=== PATIENT | male | born 1990 | race Caucasian/White ===

== ENCOUNTER 2019-01-06 19:40 | Emergency (ER) | payer BC, SELFPAY ==
[2019-01-06 19:44] VITALS: BP 126/83; PULSE 100; RESP 16; TEMP 36.6; O2SAT 95
--- NOTE | 2019-01-06 20:16 | ED.GENADUL_ITS ---
Discharge Plan Disposition Patient Disposition: HOME Condition: Stable Discharge Details Chief Complaint: RashLesion Clinical Impression: Rash Primary Care Provider: Yash Knox ED Provider: Sheba Marley Home Meds and New Rx's Prescriptions: New permethrin 5 % cream 1 applic TP Q14D Qty: 60 RF: 0 Continued fluticasone propion-salmeterol [Advair Diskus] 1 PUFF blister with device 0 ea Inhalation DAILY RF: 0 mometasone [Nasonex] 17 GM spray,non-aerosol 1 puff NS DAILY RF: 0 levalbuterol tartrate [Xopenex HFA] 200 PUFF HFA aerosol inhaler 2 puff Inhalation Q4H PRN PRNRF: 0 Discharge Instructions Instructions: Acute Rash (ED) Additional Instructions: Use the permethrin prescription as directed. Apply topical hydrocortisone to the affected areas twice daily. Keep the areas clean and dry and be sure to wear cottom clothing. Take the benadryl as needed and directed for itching. Follow-up with your primary care doctor in the next 2 days for reevaluation. Return to the emergency department with any worsening or newconcerning symptoms. Discharge Data Discharge Date/Time-TO BE ENTERED AT DEPARTURE: 01/06/19 20:35 Discharge Physician: Sheba Marley Medical Decision Making 28-year-old male with generalized itching and occasional scattered papules noted to extremities, back and groin over the last month. He denies any new exposures, fever, pain, URI symptoms. There were very minimal papules in groin noted. There was no burrowing, abscesses or vesicles noted. He appears nontoxic and airway intact. Discussed with patient that differential diagnosis could include contact dermatitis, scabies, other unknown allergy. As he works at the [employer], this could make scabies more likely, however there are no other residents at home with same symptoms. He is advised to wash all of his clothing and bedding and will give a prescription for permethrin. He is advised to take [id number] antihistamines as needed for itching and to try topical hydrocortisone and to avoid shaving in the groin region symptoms present. It was discussed that he could try thinking of possible avoidance triggers, and try the antihistamines and topical steroids first before starting the permethrin. It is recommended he follow up with his primary care doctor for reevaluation and for referral to allergy if symptoms do not improve or worsen. He was advised to return here with any concerns. Medical Records Medical records reviewed: Yes I reviewed the patient's medical records. HPI General Mode of arrival: ambulatory . Date/Time Provider Initiated Documentation: 01/06/19 19:54 . Limitations to Documentation: no limitations . Information obtained by: patient . HPI Narrative: Pt is a 28yr old M who presents to the ED w/ a c/o itching and intermittent scattered bumps to his groin and back. He states he works at the [employer] and is concerned about being exposed to scabies. He states other people living at home do not have the same symptoms. He states the itching is worse at night. He states he does not always develop a rash in the area where he has itching and states he generally has itching all over. He states he has seen occasional red bumps on his arms and in his groin. He denies any fever, sore throat, cough shortness of breath, abdominal pain, new exposures including new medications, foods, lotions, detergents. He denies any significant pain or burning with the rash. Related Data Home Medications Medication Instructions Recorded Confirmed fluticasone propion-salmeterol 0 ea INHALATION DAILY 01/11/15 01/06/19 [Advair Diskus] levalbuterol tartrate [Xopenex HFA] 2 puff INHALATION Q4H PRN PRN 01/11/15 01/06/19 mometasone [Nasonex] 1 puff NS DAILY 01/11/15 01/06/19 permethrin 1 applic TP Q14D #60 gm 01/06/19 Previous Rx's Medication Instructions Recorded permethrin 1 applic TP Q14D #60 gm 01/06/19 Allergies Allergy/AdvReac Type Severity Reaction Status Date / Time dander Allergy Uncoded 01/11/15 16:14 dust Allergy Uncoded 01/11/15 16:14 General Stated Complaint: RashLesion MARCELLUS: 4 Review of Systems Review of Systems ROS Unobtainable: All systems reviewed & are unremarkable except as noted in HPI and below Constitutional Constitutional: Reports as per HPI, Denies chills and Denies fever(s) Eyes Eyes: Denies blurry vision ENT Ears, Nose, Mouth, and Throat: Denies dizziness, Denies sore throat and Denies throat swelling Cardiovascular Cardiovascular: Denies chest pain and Denies dyspnea Respiratory Respiratory: Denies cough and Denies dyspnea Gastrointestinal Gastrointestinal: Denies abdominal pain, Denies diarrhea and Denies vomiting Genitourinary Genitourinary: Denies hematuria and Denies dysuria Musculoskeletal Musculoskeletal: Denies back pain, Denies numbness and Reports tingling Integumentary/Breasts Skin/Breast: Denies lesions and Reports rash Neurologic Neurologic: Denies dizziness, Denies focal weakness, Denies numbness and Reports tingling Allergic/Immunologic Allergic/Immunologic: Denies throat swelling [facility] Medical History Asthma (Chronic) Surgical History No significant past surgical history (Acute) Social History Smoking/Tobacco Use Status: Former Tobacco Use Drug use: Never Exam Const General: cooperative, healthy appearing and no acute distress HENMT Head: normal to inspection Mouth: oral mucosae normal Eyes General: appearance normal, both eyes and all related structures Neck Neck: normal visual inspection Resp Effort & Inspection: normal respiratory effort and able to speak in complete sentences Auscultation: clear to auscultation bilaterally Cardio Rate: regular rate Rhythm: regular rhythm Skin Other: Minimal small 1 to 2 mm nontender erythematous papules noted to bilateral groin, possibly 2-3 in number. No other rashes noted. No vesicles, abscesses. Neuro General: alert, awake and oriented x3 Motor: muscle tone normal throughout Extrem General: normal to inspection and full ROM Psych Appearance: grossly normal Affect: normal affect Course Vital Signs Vital signs: Vital Signs Temperature 97.9 F 01/06/19 19:44 Pulse 100 H 01/06/19 19:44 Respiratory Rate 16 01/06/19 19:44 Blood Pressure 126/83 01/06/19 19:44 Pulse Oximetry 95 01/06/19 19:44 Temperature 97.9 F 01/06/19 19:44 Temperature Source Temporal Artery Scan 01/06/19 19:44 Pulse 100 H 01/06/19 19:44 Respiratory Rate 16 01/06/19 19:44 Blood Pressure 126/83 01/06/19 19:44 Pulse Oximetry 95 01/06/19 19:44 Oxygen Delivery Method Room Air 01/06/19 19:44 Oxygen Flow Rate 0 01/06/19 19:44
[2019-01-06 20:36] VITALS: BP 126/83; PULSE 100; RESP 16; TEMP 36.6; O2SAT 95
== END 2019-01-06 20:35 | disposition home or self-care (01) ==
LOC: ER 20:36
PROVIDERS: Emergency Provider Physician Assistant; PCP Physician Assistant
DX: R21 Rash and other nonspecific skin eruption (principal)
CPT/HCPCS: 99283

== ENCOUNTER 2019-04-19 01:19 | Emergency (ER) | payer BC, SELFPAY ==
[2019-04-19 01:22] VITALS: BP 144/86; PULSE 70; RESP 16; TEMP 36.8; O2SAT 100
--- NOTE | 2019-04-19 01:28 | ED.GENADUL_ITS ---
Discharge Plan Disposition Patient Disposition: HOME Condition: Stable Discharge Details Chief Complaint: Orthopedic Clinical Impression: Pain of right calf Primary Care Provider: Yash Knox ED Provider: Adonay Cross Home Meds and New Rx's Prescriptions: Continued fluticasone propion-salmeterol [Advair Diskus] 1 PUFF blister with device 0 ea Inhalation DAILY RF: 0 mometasone [Nasonex] 17 GM spray,non-aerosol 1 puff NS DAILY RF: 0 levalbuterol tartrate [Xopenex HFA] 200 PUFF HFA aerosol inhaler 2 puff Inhalation Q4H PRN PRNRF: 0 permethrin 5 % cream 1 applic TP Q14D Qty: 60 RF: 0 Discharge Instructions Additional Instructions: take aspirin 81mg daily you should be contacted with an appointment for an ultrasound on Sunday if you develop high fevers or difficulty breathing or chest pain/pressure return to the emergency department Medical Decision Making 28 yo male comes in with nontraumatic 2 weeks of right calf pain. States he has been recently not very mobile due to recent back injury. Denies any fevers or rashes. He has pain in the mid calf with very mild swelling, full rom of the legs and no redness or erythema, normal pulses. Suspect calf strain but given location and decrease in mobility (though still walking) feel u/s would be useful unfortunately no u/s available until Sunday. Feel he is low risk enough to wait until Sunday. Will have him return for u/s on Sunday and return precautions go come back sooner given. Differential Diagnosis Differential Diagnosis: dvt, strain, spasm HPI General Mode of arrival: ambulatory . Date/Time Provider Initiated Documentation: 04/19/19 01:20 . Limitations to Documentation: no limitations . Information obtained by: patient . History of Present Illness 28 year old M presents to the emergency department with the chief complaint of right calf pain, described as moderate, Quality is described as aching, and is localized to the lower extremity. Patient reports no radiation. Patient started experiencing this week(s) (2) No relieving factors improve symptom(s), No exacerbating factors reported . Patient did receive the following treatments prior to arrival, none Related Data Home Medications Medication Instructions Recorded Confirmed fluticasone propion-salmeterol 0 ea INHALATION DAILY 01/11/15 01/06/19 [Advair Diskus] levalbuterol tartrate [Xopenex HFA] 2 puff INHALATION Q4H PRN PRN 01/11/15 01/06/19 mometasone [Nasonex] 1 puff NS DAILY 01/11/15 01/06/19 clindamycin HCl 300 mg PO TID 04/19/19 04/19/19 diazepam [Valium] 5 mg PO TID PRN 04/19/19 04/19/19 gabapentin 100 mg PO TID 04/19/19 04/19/19 Allergies Allergy/AdvReac Type Severity Reaction Status Date / Time dander Allergy Uncoded 01/11/15 16:14 dust Allergy Uncoded 01/11/15 16:14 General MARCELLUS: 4 Review of Systems All systems reviewed & are unremarkable except as noted in HPI and below Constitutional Constitutional: Denies chills, Denies fever(s) and Denies weakness Cardiovascular Cardiovascular: Denies chest pain and Denies dyspnea Respiratory Respiratory: Denies dyspnea Gastrointestinal Gastrointestinal: Denies abdominal pain, Denies nausea and Denies vomiting Musculoskeletal Musculoskeletal: Denies joint swelling Neurologic Neurologic: Denies weakness PFSH Social History Smoking/Tobacco Use Status: Former Tobacco Use Alcohol Intake: former Drug use: Never Substance use type: does not use Do you feel safe at home: Yes Do you feel safe in your relationship?: Yes Exam Const General: no acute distress Orientation: alert HENMT Head: normal to inspection Ears: external ears normal General nose exam: external nose normal Mouth: moist mucous membranes Eyes General: appearance normal, both eyes and all related structures Neck Neck: normal visual inspection Resp Effort & Inspection: normal respiratory effort and able to speak in complete sentences Cardio Rate: regular rate Skin General skin exam: no rashes or lesions noted Neuro General: alert and oriented x3 Extrem General: full ROM and normal capillary refill Psych Mental Status: mental status grossly normal
== END 2019-04-19 01:45 | disposition home or self-care (01) ==
LOC: ER 01:47
PROVIDERS: Emergency Provider Emergency Medicine; PCP Physician Assistant
DX: M79.661 Pain in right lower leg (principal)
CPT/HCPCS: 99282

== ENCOUNTER 2019-04-23 01:25 | Outpatient (CLI) | payer BC, SELFPAY ==
--- NOTE | 2019-04-23 12:21 | DI.US_ITS ---
EXAM: US LOWER EXTREMITY VENOUS RT US LOWER EXTREMITY VENOUS RT CLINICAL HISTORY: RT CALF PAIN. RT CALF PAIN TECHNIQUE: Lower extremity venous ultrasound performed using grayscale, color-flow, and spectral Dop pler analysis. COMPARISON: No exams were available for comparison FINDINGS: The common femoral, femoral and popliteal veins demonstrate normal compressibility, augmentation, and color Doppler. The posterior tibial veins are patent. The saphenous vein appears free of thrombus. No Barnes's cyst or hematoma is seen. No superficial venous thrombosis or venous varicosities are see n. IMPRESSION: No evidence of DVT.
== END 2019-04-23 01:45 ==
PROVIDERS: PCP Physician Assistant; Visit Provider Emergency Medicine
DX: M79.661 Pain in right lower leg (principal)
CPT/HCPCS: 93971

== ENCOUNTER 2019-04-23 12:49 | Emergency (ER) | payer BC, SELFPAY ==
[2019-04-23 13:05] VITALS: BP 141/80; PULSE 105; RESP 16; TEMP 36.6; O2SAT 99
[2019-04-23 13:54] LABS: Lactate 0.8 mmol/L (0.6-1.4)
[2019-04-23 13:56] LABS: Abs Immature Grans 0.02 k/cumm (0.0-0.09); Absolute Basophil Count 0.04 k/cumm (0.0-0.2); Absolute Eosinophil Count 0.26 k/cumm (0.0-0.7); Absolute Monocyte Count 0.43 k/cumm (0.11-0.7); Absolute Neutrophil Count 5.17 k/cumm (1.2-6.7); Basophils % 0.5; Eosinophils % 3.4; HCT 46.5 % (40.0-50.0); HGB 16.1 g/dL (13.5-17.5); Immature Grans % 0.3 %; Lymphocytes % 22.3; Mean Corp. HGB Concentration 34.6 g/dL (32.0-36.0); Mean Corpuscular Hemoglobin 30.1 pg (27.0-33.0); Mean Corpuscular Volume 86.9 fL (80-95); Mean Platelet Volume 10.9 fL (8.0-11.0); Monocytes % 5.6; Neutrophils % 67.9; Platelet Count 204 x1000/uL (130-400); RBC 5.35 m/cumm (4.50-6.00); RBC Distribution Width 12.1 % (11.8-14.1); White Blood Cell Count 7.62 k/cumm (4.4-10.8)
--- NOTE | 2019-04-23 14:05 | DI.RAD_ITS ---
EXAM: XR CHEST 2V PA LATERAL CLINICAL HISTORY: cough, fever reports shaking chills r/o pneumonia TECHNIQUE: 2D digital imaging was performed. COMPARISON: No exams were available for comparison FINDINGS: The cardiac and mediastinal contours have a normal appearance. The lungs are well inflated and clear . No infiltrate, effusion or pneumothorax is seen. No spine or rib fracture is identified. IMPRESSION: Negative chest x-ray.
[2019-04-23 14:31] LABS: ALT 34 U/L (16-63); AST 19 U/L (15-37); Albumin 4.5 g/dL (3.4-5.0); Alkaline Phosphatase 74 U/L (46-116); Anion Gap 11.6 mmol/L (3-11); BUN 13 mg/dL (7-18); Bilirubin, Total 0.6 mg/dL (0.2-1.0); CO2 24.4 mmol/L (21.0-32.0); CREATININE 0.99 mg/dL (0.70-1.30); Calcium 9.4 mg/dL (8.5-10.1); Chloride 103 mmol/L (98-107); Glucose 96 mg/dL (74-106); Sodium 139 mmol/L (136-145); Total Protein 7.4 g/dL (6.4-8.2)
[2019-04-23 14:40] LABS: ESR 3 mm/hr (0-15)
[2019-04-23 15:30] VITALS: TEMP 36.6
--- NOTE | 2019-04-23 19:09 | W.ED.GENAD ---
Discharge Plan Disposition Patient Disposition: HOME Condition: Good Discharge Details Chief Complaint: Recheck Clinical Impression: Chills Primary Care Provider: Yash Knox ED Provider: Ramya Echevarria Home Meds and New Rx's Prescriptions: No Action fluticasone propion-salmeterol [Advair Diskus] 1 PUFF blister with device 0 ea Inhalation DAILY RF: 0 mometasone [Nasonex] 17 GM spray,non-aerosol 1 puff NS DAILY RF: 0 levalbuterol tartrate [Xopenex HFA] 200 PUFF HFA aerosol inhaler 2 puff Inhalation Q4H PRN PRNRF: 0 clindamycin HCl 300 mg Capsule 300 mg PO TID RF: 0 gabapentin 100 mg Capsule 100 mg PO TID RF: 0 diazepam [Valium] 5 mg Tablet 5 mg PO TID PRNRF: 0 Discharge Instructions Additional Instructions: Drink plenty fluids. Rest activities as tolerated. ER will call if your MRSA screening test or blood cultures returned positive. These results are still pending. Your lab results are extremely reassuring. Follow-up with infectious disease as discussed. Return for any worsening, concerns or alarming symptoms sooner if needed. Discharge Data Discharge Date/Time-TO BE ENTERED AT DEPARTURE: 04/23/19 15:33 Medical Decision Making This is a 28-year-old patient ultimately presenting to the emergency room for ultrasound follow-up as he was evaluated yesterday for right calf pain and ultrasound was unavailable at this time. Patient had ultrasound today which I have received a verbal report from radiology which is negative for obvious DVT. Patient however does report persistent concerns of night sweats and shaking chills. 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 He has been on 3 courses of clindamycin. Patient is concerned with the possibility of persistent MRSA infection. Patient is concerned with the possibility of blood infection. Patient denies any focal rash at this time. No wounds. Denies headaches or dizziness. Patient denies any sore throat. He does report a cough which has been present for approximately 1 month. Denies any associated difficulty beating shortness of breath or wheezing. Patient denies any chest pain. Patient is seeking lab evaluation to rule out any obvious blood infection. Patient does report that he recently completed a course of clindamycin 2 days ago and does report that since discontinuing his clindamycin he does feel significantly improved. He questions if clindamycin is related to his symptoms. Labs obtained at patient's request. Chest x-ray ordered as he does report cough for the last month and shaking chills and night sweats to rule out any obvious pneumonia. MRSA testing performed Patient's labs are entirely reassuring. No leukocytosis or shift associated. CMP normal, sed rate normal, lactate normal. Patient does have blood cultures and MRSA pending. Patient has requested that his lab results are sent to infectious disease whom he has a an upcoming appointment with. Patient feels comfortable with discharge home at this time. The patient was stable and requested discharge. Prior to discharge, my usual and customary return precautions were reviewed with the patient - this included follow-up instructions and reasons to return to the Emergency Department if conditions worsens, does not improve as expected, or other new concerns arise. HPI General Date/Time Provider Initiated Documentation: 04/23/19 13:02. HPI Narrative: This is a 28-year-old patient presenting to the emergency room today to follow-up his ultrasound findings. Patient was seen in the ER yesterday for complaints of right calf pain. Patient ultimately was concerned with the possibility of an infection as he has had multiple infections over the last year. Patient reports MRSA infections. Patient was concerned as last night he scratched the area began to burn. Concerned the possibility of development of new infection. Ultrasound was unavailable last evening ER doctor ordered ultrasound for this morning. Patient does report shaking chills at home and night sweats. Denies any nasal congestion, sore throat or body ache. He is ultimately concerned with the possibility of a blood infection. Patient does have a follow-up with infectious disease doctor in [facility] upcoming. Patient denies any measured fever. Patient denies any obvious rashes at this time. Patient denies any abdominal pain, nausea, vomiting. He does report a cough which has been present for approximately a month. Patient denies obvious headache or dizziness. Patient is requesting lab work at this time to rule out any obvious infection. Patient denies any chest pain no difficulty breathing shortness of breath or wheezing. Patient does report 3 courses of clindamycin in the last year. Patient does report he does get somewhat Rash when taking clindamycin and is concerned with the possibility of adverse reaction to clindamycin. Patient has been off clindamycin for the last 2 days. Does report some improvement in his symptoms in the last 2 days Related Data Home Medications Medication Instructions Recorded Confirmed fluticasone propion-salmeterol 0 ea INHALATION DAILY 01/11/15 04/23/19 [Advair Diskus] levalbuterol tartrate [Xopenex HFA] 2 puff INHALATION Q4H PRN PRN 01/11/15 04/23/19 mometasone [Nasonex] 1 puff NS DAILY 01/11/15 04/23/19 clindamycin HCl 300 mg PO TID 04/19/19 04/23/19 diazepam [Valium] 5 mg PO TID PRN 04/19/19 04/23/19 gabapentin 100 mg PO TID 04/19/19 04/23/19 Allergies Allergy/AdvReac Type Severity Reaction Status Date / Time dander Allergy Uncoded 04/23/19 13:09 dust Allergy Uncoded 04/23/19 13:09 General Stated Complaint: Recheck MARCELLUS: 4 Review of Systems All systems reviewed & are unremarkable except as noted in HPI and below Constitutional Constitutional: Reports chills, Denies fatigue, Denies fever(s), Denies headache(s), Reports malaise and Reports night sweats ENT Ears, Nose, Mouth, and Throat: Denies otalgia, Denies headache(s), Denies nasal discharge and Denies sore throat Cardiovascular Cardiovascular: Denies dyspnea and Denies dyspnea on exertion Respiratory Respiratory: Reports cough, Denies pain with cough, Denies dyspnea, Denies dyspnea on exertion and Denies wheezing Gastrointestinal Gastrointestinal: Denies abdominal pain, Denies diarrhea, Denies nausea and Denies vomiting Genitourinary Genitourinary: Denies dysuria and Denies flank pain Musculoskeletal Musculoskeletal: Denies myalgias Integumentary/Breasts Skin/Breast: Denies erythema, Denies rash and Denies wounds Neurologic Neurologic: Denies headache(s) Endocrine Endocrine: Denies fatigue Allergic/Immunologic Allergic/Immunologic: Denies wheezing [facility] Medical History Asthma (Chronic) Social History Smoking/Tobacco Use Status: Former Tobacco Use Alcohol Intake: former Drug use: Never Substance use type: does not use Do you feel safe at home: Yes Do you feel safe in your relationship?: Yes Exam Narrative Exam Narrative: CONST: Healthy appearing patient, in no acute distress. Well hydrated. Alert and oriented. HENMT: Head nomocephalic, normal to inspection. Atraumatic. Hearing grossly normal. TMs appear normal bilaterally. No pharyngeal erythema. EYES: General normal appearance. Alignment normal. Eyelids normal. Conjunctiva normal. NECK: Normal visual inspection. FROM. Trachea midline. No Midline tenderness. No cervical lymphadenopathy present CHEST: Normal insepection of the chest. RESP: Normal respiratory effort. Speaking full sentences. No cough. No audible wheezing. No retractions. Breath sounds clear, full and equal bilaterally. No wheezing, rhonchi or rales CARDIO: No JVD. No murmur, regular rate and rhythm. MUSCULOSKELETAL: Normal Gait. FROM of all extremities. Right calf with mild calf pain present. Negative Homans. No obvious swelling or rash. SKIN: Normal. Dry. No rashes. NEURO: Alert and awake. Speech clear. PSYCH: Normal affect. Cooperative. Course Vital Signs Vital signs: Vital Signs Temperature 36.6 C 04/23/19 13:05 Pulse 105 H 04/23/19 13:05 Respiratory Rate 16 04/23/19 13:05 Blood Pressure 141/80 H 04/23/19 13:05 Pulse Oximetry 99 04/23/19 13:05 Temperature 36.6 C 04/23/19 15:30 Temperature Source Temporal Artery Scan 04/23/19 13:05 Pulse 105 H 04/23/19 13:05 Respiratory Rate 16 04/23/19 13:05 Blood Pressure 141/80 H 04/23/19 13:05 Blood Pressure Position Sitting 04/23/19 13:05 Pulse Oximetry 99 04/23/19 13:05 Oxygen Delivery Method Room Air 04/23/19 13:05 Oxygen Flow Rate 0 04/23/19 13:05 Lab/Test Results Lab/Test Results: 04/23/19 13:35 Blood Blood Culture - Pending 04/23/19 13:50 Blood Blood Culture - Pending 04/23/19 13:17 Nasopharynx Influenza Types A,B Antigen - Final 04/23/19 13:17 Nose MRSA Screen - Pending Laboratory Tests Range/Units 04/23/19 04/23/1920 13:50 13:50 13:50 WBC (4.4-10.8) k/cumm 7.62 RBC (4.50-6.00) m/cumm 5.35 Hgb (13.5-17.5) g/dL 16.1 Hct (40.0-50.0) % 46.5 MCV (80-95) fL 86.9 MCH (27.0-33.0) pg 30.1 MCHC (32.0-36.0) g/dL 34.6 RDW (11.8-14.1) % 12.1 Plt Count (130-400) x1000/uL 204 MPV (8.0-11.0) fL 10.9 Immature Gran % % 0.3 Neutrophils % 67.9 Lymphocytes % 22.3 Monocytes % 5.6 Eosinophils % 3.4 Basophils % 0.5 Absolute Neutrophils (1.2-6.7) k/cumm 5.17 Absolute Lymphocytes (1.2-3.4) k/cumm 1.70 Absolute Monocytes (0.11-0.7) k/cumm 0.43 Absolute Eosinophils (0.0-0.7) k/cumm 0.26 Absolute Basophils (0.0-0.2) k/cumm 0.04 ESR (0-15) mm/hr 3 Sodium (136-145) mmol/L 139 Potassium (3.5-5.1) mmol/L 4.0 Chloride (98-107) mmol/L 103 Carbon Dioxide (21.0-32.0) mmol/L 24.4 Anion Gap (3-11) mmol/L 11.6 H BUN (7-18) mg/dL 13 Creatinine (0.70-1.30) mg/dL 0.99 Estimated GFR/1.73 m2 (mL/min/1.73m2) >= 60.00 Glucose (74-106) mg/dL 96 Lactate (0.6-1.4) mmol/L 0.8 Calcium (8.5-10.1) mg/dL 9.4 Total Bilirubin (0.2-1.0) mg/dL 0.6 AST (15-37) U/L 19 ALT (16-63) U/L 34 Alkaline Phosphatase (46-116) U/L 74 Total Protein (6.4-8.2) g/dL 7.4 Albumin (3.4-5.0) g/dL 4.5
--- NOTE | 2019-04-24 09:39 | NUR.NOTE ---
Nursing Note: Faxed to [facility] [place] Infectious Disease the provider note, labs and DI report. Fax number given to Lab so that they can fax the MRSA and blood cultures reports when they are available. Letitia Pendleton .
== END 2019-04-23 15:33 | disposition home or self-care (01) ==
PROVIDERS: Emergency Provider Physician Assistant; PCP Physician Assistant
DX: R68.83 Chills (without fever) (principal); Z71.2 Person consulting for explanation of examination or test findings; M79.661 Pain in right lower leg; Z86.14 Personal history of Methicillin resistant Staphylococcus aureus infection
CPT/HCPCS: 36410; 80053; 85652; 87040; 87081; 87449; 99283; 71046; 83605; 85025

== ENCOUNTER 2019-05-28 16:51 | Emergency (ER) | payer BC, SELFPAY ==
[2019-05-28 17:04] VITALS: BP 137/91; PULSE 75; RESP 16; TEMP 36.4; O2SAT 95
[2019-05-28 17:33] VITALS: RESP 14
--- NOTE | 2019-05-28 17:34 | ED.GENADUL_ITS ---
Discharge Plan Disposition Patient Disposition: HOME Condition: Good Discharge Details Chief Complaint: GenMedical Clinical Impression: Lymph node symptom Primary Care Provider: Bonilla Goins ED Provider: Jose Armando Wolfe Home Meds and New Rx's Prescriptions: No Action fluticasone propion-salmeterol [Advair Diskus] 1 PUFF blister with device 0 ea Inhalation DAILY RF: 0 mometasone [Nasonex] 17 GM spray,non-aerosol 1 puff NS DAILY RF: 0 levalbuterol tartrate [Xopenex HFA] 200 PUFF HFA aerosol inhaler 2 puff Inhalation Q4H PRN PRNRF: 0 clindamycin HCl 300 mg Capsule 300 mg PO TID RF: 0 gabapentin 100 mg Capsule 100 mg PO TID RF: 0 diazepam [Valium] 5 mg Tablet 5 mg PO TID PRNRF: 0 Discharge Instructions Instructions: Lymphadenopathy (ED) Additional Instructions: At this time I feel that the bumps on your lower back are secondary to slightly enlarged or scarred lymph nodes. The pain in your neck that we discussed is secondary to a tension headache. Please do the exercise techniques we discussed. Please follow-up very closely with your primary care provider for the additional referrals that you are requesting that we discussed. Please follow-up closely with your infectious disease doctor for reassessment. If you notice any worsening of your symptoms, or any new symptoms such as vomiting, diarrhea, fever, chills, shortness of breath, chest pain, numbness, weakness, or fainting , please return immediately to the emergency department for reevaluation. Please follow up with your primary care provider as soon as possible for reassessment and reevaluation. As always, it was a pleasure participating in your medical care today. Referrals: Bonilla Goins [Primary Care Provider] - Discharge Data Discharge Date/Time-TO BE ENTERED AT DEPARTURE: 05/28/19 18:12 Medical Decision Making 28-year-old male who presents for evaluation of a very mild headache c omes and goes, with no concerning red flags of fever chills, 2 small lesions on his left lower flank that are been present for last few days to weeks, and evaluation of his left axillary region for concern of retained foreign body after incision and drainage procedure. Please see HPI for additional details. The patient's left flank shows 2 small lymph nodes on exam, mobile, nontender, no clinical evidence of infection, bedside ultrasound shows no other concerning abnormalities aside from 2 small lymph nodes. Urinalysis is negative for any clinical evidence of infection. Patient's left axillary region is completely unremarkable with no signs of abscess or retained foreign body. Additionally the patient showed me both the video of the incision and drainage that was performed at an outside hospital facility, as well as the amount of packing that had fallen out, both of which appear consistent with the full amount of packing having fallen out with nothing being retained. In addition to this there are no abnormalities noted on ultrasound, no signs of foreign body, cyst or abscess. No clinical evidence of infection whatsoever. Additionally in regards to the patient's headache it is clinically consistent with a tension headache, no nuchal rigidity or signs of clinical meningitis. Symptoms completely relieved with appropriate focus pressure to the mild dural bridge area, clinically consistent with a tension headache. Exercises were discussed to help relieve this, as well as stretching exercises. Patient has been clinically reassured. I do not think that this is a systemic manifestation of tularemia at this time. I did recommend close follow-up with his to infectious disease physicians that he has seen at different facilities, as well as his primary care provider. We discussed red flags to return. At this time there is no clinical evidence of acute life-threatening etiology requiring further management or medication. HPI General Date/Time Provider Initiated Documentation: 05/28/19 17:04 . HPI Narrative: This is a 28-year-old male who presents today for evaluation of 2 small lumps on his posterior flank. Patient has a notably thorough history starting 3 years ago when he had squirrels in his house, he feels that he had small bite andrews on his legs at that time and was bitten by potential fleas from squirrels, since then he has had a long process of multiple evaluations with his family doctor, and infectious disease physician at [facility], a second opinion from an infectious disease physician at [facility], eventually leading to a diagnosis but holding off on treatment secondary to lack of current active infection for tularemia. Patient is uncertain if all of the symptoms that he is having now is related to this. He does complain of a mild headache which she describes as a bandlike sensation going from the back of his neck towards his temples, in addition to these 2 small lumps on his left posterior flank with a small associated burning sensation in that area. He denies any other associated urinary symptoms. He does admit also to a request that I evaluate his left axillary region for where he had an abscess greater than a year ago which had packing but she is concerned the packing might never have come out. Patient denies consistent fevers, nausea, vomiting, diarrhea, hematuria, dysuria, numbness, tingling, weakness, weight loss. No other complaints at this time. No other modifying factors. Related Data Home Medications Medication Instructions Recorded Confirmed fluticasone propion-salmeterol 0 ea INHALATION DAILY 01/11/15 04/23/19 [Advair Diskus] levalbuterol tartrate [Xopenex HFA] 2 puff INHALATION Q4H PRN PRN 01/11/15 04/23/19 mometasone [Nasonex] 1 puff NS DAILY 01/11/15 04/23/19 clindamycin HCl 300 mg PO TID 04/19/19 04/23/19 diazepam [Valium] 5 mg PO TID PRN 04/19/19 04/23/19 gabapentin 100 mg PO TID 04/19/19 04/23/19 Allergies Allergy/AdvReac Type Severity Reaction Status Date / Time dander Allergy Uncoded 04/23/19 13:09 dust Allergy Uncoded 04/23/19 13:09 General Stated Complaint: GenMedical MARCELLUS: 3 Review of Systems All systems reviewed & are unremarkable except as noted in HPI and below PFSH Social History Smoking/Tobacco Use Status: Former Tobacco Use Alcohol Intake: former Drug use: Never Substance use type: does not use Do you feel safe at home: Yes Do you feel safe in your relationship?: Yes Exam Narrative Exam Narrative: 1.Const: Well-nourished, Well-developed, appearing stated age 2.Eyes: PERRL, no conjunctival injection, and symmetrical lids. 3.ENT: Atraumatic external nose and ears. Moist MM. Neck: Symmetric, trachea midline, No thyromegaly. Patient has mild tenderness in the eloy-dural bridge region, no nuchal rigidity. Patient demonstrates good movement of cervical neck. There is no nuchal rigidity, no nuchal tenderness. Patient is able to flex the neck without any difficulty or significant pain. Negative Kernig's and Brudzinski sign. Neck pain is completely relieved with focal pressure to the [id number] bridge clinically consistent with tension headache 4.CVS: +S1/S2, No murmurs or gallops. Peripheral pulses 2+ and equal in all extremities. Brisk capillary refill in all extremities. 5.RESP: Unlabored respiratory effort. Clear to auscultation bilaterally. No wheezes rales or rhonchi 6.GI: Soft, Nontender/Nondistended, No hepatosplenomegaly. No guarding or rebound. 7.MSK: Normocephalic/Atraumatic, Extremities w/o deformity or ttp No cyanosis or clubbing, Normal movement of all extremities Left flank: 2 very small subcutaneous lesion each 1 cm in diameter, mobile, nonfluctuant, nontender, with no surrounding erythema edema redness. Bedside ultrasound shows evidence of these being lymph nodes, no evidence of abscess, no signs of cobblestoning. No other abnormalities. Left axillary region, the area of the previous incision and drainage from the past shows no evidence of significant scar, lump, mass, bedside ultrasound shows no evidence of fluid pocket, or foreign body, additionally there is no redness, warmth, swelling, tenderness or other abnormality in the axillary region, no signs of retained tissue packing. 8.Skin: Warm, Dry. No rashes or lesions. Please see musculoskeletal 9.Neuro: stereotyper II-XII grossly intact. Sensation grossly intact, no focal neurologic deficits. 10.Psych: (AAO) x3. Appropriate mood and affect Course Vital Signs Vital signs: Vital Signs Temperature 36.4 C L 05/28/19 17:04 Pulse 75 05/28/19 17:04 Respiratory Rate 16 05/28/19 17:04 Blood Pressure 137/91 H 05/28/19 17:04 Pulse Oximetry 95 05/28/19 17:04 Temperature 36.4 C L 05/28/19 17:04 Temperature Source Tympanic 05/28/19 17:04 Pulse 75 05/28/19 17:04 Respiratory Rate 16 05/28/19 17:04 Respiratory Effort Non-Labored 05/28/19 17:09 Blood Pressure 137/91 H 05/28/19 17:04 Blood Pressure Position Sitting 05/28/19 17:04 Pulse Oximetry 95 05/28/19 17:04 Oxygen Delivery Method Room Air 05/28/19 17:04 Oxygen Flow Rate 0 05/28/19 17:04
[2019-05-28 17:44] LABS: Bilirubin Negative (Negative); Blood Negative (Negative); Clarity Clear (Clear); Glucose Negative (Negative); Ketones Negative (Negative); Leukocyte Esterase Negative (Negative); Nitrite Negative (Negative); Specific Gravity >= 1.030 (1.005-1.025); Urobilinogen 0.2 EU/dL (Up TO 0.2)
== END 2019-05-28 18:12 | disposition home or self-care (01) ==
PROVIDERS: Emergency Provider Student in an Organized Health Care Education/Training Program; PCP Family Medicine
DX: G44.209 Tension-type headache, unspecified, not intractable (principal); R59.1 Generalized enlarged lymph nodes; A21.9 Tularemia, unspecified
CPT/HCPCS: 99282; 81003; 99283

== ENCOUNTER 2019-09-07 15:32 | Outpatient (REF) | payer BC, SELFPAY ==
[2019-09-09 17:57] LABS: Campylobacter PCR Negative (Negative); Salmonella PCR Negative (Negative); Shiga Toxin PCR Negative (Negative); Shigella/Enteroinvasive Ecoli Negative (Negative)
== END 2019-09-07 15:52 ==
LOC: LBN 15:32
PROVIDERS: PCP Family Medicine; Visit Provider Surgery
DX: R19.7 Diarrhea, unspecified (principal)
CPT/HCPCS: 87505; 87324

== ENCOUNTER 2019-10-21 18:28 | Emergency (ER) | payer BC, SELFPAY ==
[2019-10-21 18:31] VITALS: BP 127/77; PULSE 83; RESP 18; TEMP 37; O2SAT 96
--- NOTE | 2019-10-21 18:38 | ED.GENADUL_ITS ---
Discharge Plan Disposition Patient Disposition: HOME Condition: Stable Discharge Details Chief Complaint: RashLesion Clinical Impression: Abscess of left thigh Primary Care Provider: Bonilla Goins ED Provider: Sheba Marley Home Meds and New Rx's Prescriptions: New sulfamethoxazole-trimethoprim [Bactrim DS] 800-160 mg tablet 2 tab PO BID 7 Days Qty: 28 RF: 0 mupirocin 2 % ointment 1 applic TP BID Qty: 15 RF: 0 Continued omeprazole 20 mg capsule,delayed release(DR/EC) 20 mg PO DAILY Qty: 30 RF: 5 Saccharomyces boulardii 250 mg powder in packet 250 mg PO DAILY Qty: 90 RF: 1 albuterol sulfate [Ventolin HFA] 90 mcg/actuation HFA aerosol inhaler 2 puff IH Q4H PRN (Reason: shortness of breath or wheezing) Qty: 8.5 RF: 11 montelukast 10 mg tablet 10 mg PO DAILY Qty: 30 RF: 2 polyethylene glycol 3350 17 gram/dose powder 238 g PO ONCE Qty: 238 RF: 0 bisacodyl [Dulcolax (bisacodyl)] 5 mg tablet,delayed release (DR/EC) 5 mg PO ONCE Qty: 4 RF: 0 Discharge Instructions Instructions: Abscess (ED) Additional Instructions: Apply warm compresses to the affected area several times daily for 20 minutes at a time. Alternate tylenol and motrin as needed and directed for pain. If you have no improvement or worsening of redness, pain or swelling, start the antibiotics. Follow-up with your primary care doctor in 1 week. Return to the emergency department with any worsening or new concerning symptoms of fever, significant worsening of redness, pain or swelling not relieved with oral antibiotics. Discharge Data Discharge Physician: Sheba Marley Medical Decision Making 29-year-old male presents with possible abscess to the left proximal inner thigh that he noted this morning. He has had a flat purplish lesion there for several months but today became more raised and tender. Presentation appears consistent with a possible ecchymotic abscess versus hematoma. With surrounding tenderness and minimal erythema, likely mostly consistent with cellulitis with possible abscess. Area was cleaned with chlorhexidine prep. 6 cc of lidocaine with epinephrine injected into site. A 3 mm incision was made with an 11 blade with only bloody drainage but no pus drainage. Area was irrigated with normal saline and dressed. Iodoform gauze not placed as appears likely this is not an abscess at this time. Consider possible cellulitis or developing abscess. Patient has multiple antibiotic allergies including to clindamycin, Cipro and doxycycline. Will give a prescription for Bactrim as he has tolerated this for abscesses in the past. He states he would rather hold on antibiotics if possible. He was advised to continue to apply warm compresses. He was given a prescription for Bactrim to take if symptoms do not improve or worsen. He is advised to follow-up with his primary care doctor for reevaluation. Usual and customary return precautions given prior to discharge. He requested a prescription for mupirocin as well. His chart noted a history of allergy to mupirocin but he denies this. HPI General Mode of arrival: ambulatory . Date/Time Provider Initiated Documentation: 10/21/19 18:37 . Limitations to Documentation: no limitations . Information obtained by: patient . HPI Narrative: Patient is a 29-year-old male who presents the ED with a painful lump noted to his left thigh that he noticed this morning. Patient states that he has had a purple flat lesion noted to his left thigh for several months after a similar abscess there treated with antibiotics. Pt states this morning he noted that the purple lesion became r aised, larger and painful with surrounding redness. He states he has had multiple abscesses in the past, some within his groin and within his axilla. He denies any fever or drainage. Related Data Home Medications Medication Instructions Recorded Confirmed albuterol sulfate 90 mcg/actuation 2 puff IH Q4H PRN #8.5 gm 07/09/19 09/22/19 aerosol inhaler montelukast 10 mg tablet 10 mg PO DAILY #30 tab 08/26/19 09/22/19 Saccharomyces boulardii 250 mg 250 mg PO DAILY #90 each 09/17/19 09/22/19 oral powder packet omeprazole 20 mg capsule,delayed 20 mg PO DAILY #30 cap 09/17/19 09/22/19 release bisacodyl 5 mg tablet,delayed 5 mg PO ONCE #4 tab 09/23/19 release polyethylene glycol 3350 17 238 g PO ONCE #238 gm 09/23/19 gram/dose oral powder mupirocin 1 applic TP BID #15 gm 10/21/19 sulfamethoxazole-trimethoprim 2 tab PO BID 7 Days #28 tab 10/21/19 [Bactrim DS] Previous Rx's Medication Instructions Recorded albuterol sulfate 90 mcg/actuation 2 puff IH Q4H PRN #8.5 gm 07/09/19 aerosol inhaler montelukast 10 mg tablet 10 mg PO DAILY #30 tab 08/26/19 Saccharomyces boulardii 250 mg 250 mg PO DAILY #90 each 09/17/19 oral powder packet omeprazole 20 mg capsule,delayed 20 mg PO DAILY #30 cap 09/17/19 release bisacodyl 5 mg tablet,delayed 5 mg PO ONCE #4 tab 09/23/19 release polyethylene glycol 3350 17 238 g PO ONCE #238 gm 09/23/19 gram/dose oral powder mupirocin 1 applic TP BID #15 gm 10/21/19 sulfamethoxazole-trimethoprim 2 tab PO BID 7 Days #28 tab 10/21/19 [Bactrim DS] Allergies Allergy/AdvReac Type Severity Reaction Status Date / Time ciprofloxacin Allergy Intermediate Verified 10/21/19 18:34 clindamycin Allergy Intermediate Verified 10/21/19 18:34 mupirocin [From Bactroban] Allergy Intermediate Local Verified 10/21/19 18:34 swelling mold Allergy Mild Unverified 10/21/19 18:34 pollen extracts Allergy Mild Unverified 10/21/19 18:34 dander Allergy Uncoded 10/21/19 18:34 dust Allergy Uncoded 10/21/19 18:34 General Stated Complaint: RashLesion MARCELLUS: 4 Review of Systems All systems reviewed & are unremarkable except as noted in HPI and below Constitutional Constitutional: Reports as per HPI, Denies chills and Denies fever(s) Eyes Eyes: Denies blurry vision ENT Ears, Nose, Mouth, and Throat: Denies dizziness, Denies sore throat and Denies throat swelling Cardiovascular Cardiovascular: Denies chest pain and Denies dyspnea Respiratory Respiratory: Denies cough and Denies dyspnea Gastrointestinal Gastrointestinal: Denies abdominal pain, Denies diarrhea and Denies vomiting Genitourinary Genitourinary: Denies hematuria and Denies dysuria Musculoskeletal Musculoskeletal: Denies back pain and Denies numbness Integumentary/Breasts Skin/Breast: Reports lesions and Denies rash Neurologic Neurologic: Denies dizziness, Denies localized weakness and Denies numbness Allergic/Immunologic Allergic/Immunologic: Denies throat swelling PFSH Social History Smoking/Tobacco Use Status: Former Tobacco Use Alcohol Intake: former Drug use: Never Substance use type: does not use Do you feel safe at home: Yes Do you feel safe in your relationship?: Yes Exam Const General: cooperative, healthy appearing and no acute distress HENMT Head: normal to inspection Mouth: oral mucosae normal Eyes General: appearance normal, both eyes and all related structures Neck Neck: normal visual inspection Resp Effort & Inspection: normal respiratory effort and able to speak in complete sentences Cardio Rate: regular rate Neuro General: patient alert, patient awake and patient oriented x3 Motor: muscle tone normal throughout Extrem General: normal to inspection and full ROM Upper/lower leg/hip images: 1. 1 x 1 cm area of raised tender ecchymosis which is minimally fluctuant with a surrounding area of 3 x 3 cm of induration and faint erythema. Psych Appearance: grossly normal Affect: normal affect Course Vital Signs Vital signs: Vital Signs Temperature 98.6 F 10/21/19 18:31 Pulse 83 10/21/19 18:31 Respiratory Rate 18 10/21/19 18:31 Blood Pressure 127/77 10/21/19 18:31 Pulse Oximetry 96 10/21/19 18:31 Temperature 98.6 F 10/21/19 18:31 Temperature Source Skin 10/21/19 18:31 Pulse 83 10/21/19 18:31 Respiratory Rate 18 10/21/19 18:31 Respiratory Effort Non-Labored 10/21/19 18:35 Blood Pressure 127/77 10/21/19 18:31 Blood Pressure Position Sitting 10/21/19 18:31 Pulse Oximetry 96 10/21/19 18:31 Oxygen Delivery Method Room Air 10/21/19 18:31 Oxygen Flow Rate 0 10/21/19 18:31 Pain Level 0 10/21/19 18:31 Procedures Abscess I/D Site: Lower Extremity (L proximal thigh) Side (if applicable): Left Local Anesthetic: Lidocaine 1% and With Epi Amount of anesthesia used (mL): 6 Technique: Incised with #11 Blade Amount of fluid expressed (mL): 0.5 (bloody drainage) Irrigation: Yes Packing used?: None
== END 2019-10-21 19:30 | disposition home or self-care (01) ==
PROVIDERS: Emergency Provider Physician Assistant; PCP Family Medicine
DX: L02.416 Cutaneous abscess of left lower limb (principal)
CPT/HCPCS: 10060; 87070; 87205

== ENCOUNTER 2019-10-31 02:06 | Outpatient (CLI) | payer BC, SELFPAY ==
[2019-10-31 17:18] LABS: Calculated LDL 73 mg/dL (<100); Cholesterol 137 mg/dL (<200); HDL Cholesterol 28 mg/dL (40-60); Triglyceride 183 mg/dL (<150)
== END 2019-10-31 02:26 ==
PROVIDERS: PCP Family Medicine; Visit Provider Family Medicine
DX: E78.5 Hyperlipidemia, unspecified (principal)
CPT/HCPCS: 36415; 80061

== ENCOUNTER 2019-12-05 03:53 | Outpatient (CLI) | payer BC, SELFPAY ==
[2019-12-05 17:22] LABS: Bilirubin Negative (Negative); Blood Negative (Negative); Clarity Clear (Clear); Glucose Negative (Negative); Ketones Negative (Negative); Leukocyte Esterase Negative (Negative); Nitrite Negative (Negative); Specific Gravity 1.015 (1.005-1.025); Urobilinogen 0.2 EU/dL (Up TO 0.2)
== END 2019-12-05 04:13 ==
PROVIDERS: Nurse Practitioner; PCP Family Medicine; Visit Provider Urology
DX: N39.498 Other specified urinary incontinence (principal)
CPT/HCPCS: 81003

== ENCOUNTER 2019-12-23 21:51 | Outpatient (REF) | payer BC, SELFPAY | END 2019-12-23 22:11 | LOC: LBN 21:51 | PROVIDERS: PCP Nurse Practitioner; Visit Provider Nurse Practitioner Family | DX: N39.0 Urinary tract infection, site not specified (principal) | CPT/HCPCS: 87086 ==

== ENCOUNTER 2020-01-20 01:41 | Outpatient (CLI) | payer BC, SELFPAY | END 2020-01-20 02:01 | PROVIDERS: PCP Nurse Practitioner; Visit Provider Nurse Practitioner | DX: I49.8 Other specified cardiac arrhythmias (principal) | CPT/HCPCS: 93225 ==

== ENCOUNTER 2020-01-23 11:56 | Outpatient (CLI) | payer BC, SELFPAY ==
--- NOTE | 2020-01-26 08:32 | W.HOLTRPT ---
Date of service: 01/26/20 Time of Service: 08:32 Holter Monitor Report Referring Provider:: dorcas Indications:: arrhythmias Holter Monitor Note: This is a 24-hour Holter monitor ordered for the indication of arrhythmias. ?The patient was in normal sinus rhythm for the majority of the recording with an average heart rate of 84 bpm. ?There were no episodes of supraventricular tachycardia nor any episodes of ventricular tachycardia. ?There were frequent (6.7% PVCs. ?There were no episodes of atrial fibrillation, no pauses greater than 3 seconds and no evidence of high degree heart block. ?Patient triggered events were associated with sinus rhythm, PVCs.
== END 2020-01-23 12:16 ==
PROVIDERS: PCP Nurse Practitioner; Visit Provider Nurse Practitioner
DX: I49.8 Other specified cardiac arrhythmias (principal); I49.3 Ventricular premature depolarization
CPT/HCPCS: 93226

== ENCOUNTER 2020-04-07 04:43 | Outpatient (CLI) | payer BC, SELFPAY ==
[2020-04-09 17:47] LABS: Alternaria Tenuis IgE 0.65 kU/L; Aspergillus Fumigatus IgE <0.35 kU/L; Bermuda Grass IgE <0.35 kU/L; Cladosporium IgE <0.35 kU/L; Cocklebur IgE <0.35 kU/L; Cockroach IgE <0.35 kU/L; Cottonwood IgE <0.35 kU/L; D Farinae IgE 0.35 kU/L; D Pteronyssinus IgE 0.48 kU/L; Dog Dander IgE 9.13 kU/L; Eastern Sycamore IgE <0.35 kU/L; Elm IgE <0.35 kU/L; Epicoccum purpurascens IgE <0.35 kU/L; Giant Ragweed IgE <0.35 kU/L; Lamb's Quarter IgE <0.35 kU/L; Oak IgE <0.35 kU/L; Penicillium chrysogenum IgE <0.35 kU/L; Red Sorrel IgE <0.35 kU/L; Rough Pigweed IgE <0.35 kU/L; Short Ragweed IgE <0.35 kU/L; Silver Birch IgE <0.35 kU/L; Stemphyllium IgE <0.35 kU/L; Timothy Grass IgE <0.35 kU/L; Walnut Tree IgE <0.35 kU/L
[2020-04-09 17:58] LABS: Wormwood IgE 0.57 kU/L
[2020-04-13 11:05] LABS: CLASS 0; Cedar Red IgE <0.10 kU/L (<0.35); Fusarium oxysporum/vasinfectum <0.35 kU/L (<0.35); Rhodotorula IgE <0.35 kU/L (<0.35)
== END 2020-04-07 05:03 ==
PROVIDERS: PCP Nurse Practitioner; Visit Provider Otolaryngology Otolaryngology/Facial Plastic Surgery
DX: J31.0 Chronic rhinitis (principal); J45.909 Unspecified asthma, uncomplicated; J30.9 Allergic rhinitis, unspecified; Z01.82 Encounter for allergy testing
CPT/HCPCS: 36415; 86003

== ENCOUNTER 2020-11-22 03:09 | Outpatient (CLI) | payer BC, SELFPAY ==
[2020-11-22 13:24] LABS: Source Nasal/Nares
[2020-11-22 17:09] LABS: COVID-19 PCR Negative (Negative)
== END 2020-11-22 03:10 | disposition home or self-care (01) ==
LOC: LBO 03:09
PROVIDERS: PCP Nurse Practitioner; Visit Provider Surgery
DX: Z20.822 Contact with and (suspected) exposure to COVID-19 (principal); Z01.818 Encounter for other preprocedural examination
CPT/HCPCS: 87635

== ENCOUNTER 2020-11-24 08:05 | Day surgery (SDC) | payer BC, SELFPAY ==
--- NOTE | 2020-11-24 06:39 | ROE_ITS ---
Date of service: 11/24/20 Time of Service: 09:54 Operative Note Operative Note DATE OF PROCEDURE: 11/24/20 PRE-OP DIAGNOSIS: Umbilical hernia POST-OP DIAGNOSIS: same PROCEDURE: Primary Umbilical hernia repair SURGEON: Violet Reid HEALTHCARE MANAGEMENT: Amber Davila ANESTHESIA TYPE: Local By Surgeon and General:No Airway Refer to Anesthesia Record ESTIMATED BLOOD LOSS: 15 PATHOLOGY: none sent COMPLICATIONS: None Patient was transported to: PACU Patient's condition: stable Implants: None Indications: Mr. Phelps is a pleasant 30-year-old gentleman with a partially reducible umbilical hernia. He has been having some discomfort around it especially when he plays golf. We discussed umbilical hernia repair with mesh. Risks benefits and alternatives were reviewed. Risks, benefits and complications have been reviewed. Complications include but are not limited to bleeding, pain, infection, injury to underlying structures like bowel and adverse reaction to the medication. Questions were entertained and answered to their satisfaction and they wished to proceed. No guarantees were given or implied. Proceed with umbilical hernia repair with mesh Findings: A small 0.5 cm hernia defect just above the umbilicus Procedure Description: After informed consent was obtained the patient was taken to the operating room and placed in a supine position. Monitors and SCDs were applied and a timeout was done. The patient's name, date of , procedure type, procedure site, allergies to medications, preoperative antibiotic, and DVT prophylaxis were all reviewed. Fire risk was assessed. The patient was placed under general anesthesia without airway. Once anesthesia was done the abdomen was prepped and draped in a sterile surgical fashion. 0.25% Bupivacaine mixed with exparel was injected into the dermis just above the umbilicus. An incision was made with a 15 blade above the umbilicus. Dissection was done with cautery through the subcutaneous tissues around the small hernia sac. There was pre-peritoneal fat within the sac. The fat was amputated with the sac. The hernia defect was identified and measured 0.5 cm. Because the defect was so small it was closed with 0 Vicryl figure of eight suture. The wound was dried. A small amount of bleeding was identified and cauterized. Once the wound was dry the subcutaneous tissue was re-approximated with 3-0 vicryl. The dermis was re-approximated with a running 4-0 Vicryl. The skin was cleaned and dried and skin affix was applied. The patient was woken up and taken back to recovery in stable condition. There were no immediate complications. Sponge, instrument and needle counts were correct at the end of the case x2.
--- NOTE | 2020-11-24 06:41 | W.PM.DSUDISC ---
Discharge Plan Disposition Patient Disposition: HOME Condition: Good Discharge Details Reason For Visit: Umbilical Hernia Attending Provider: Violet Reid Primary Care Provider: Kassy Bray Home Meds and New Rx's Prescriptions: New oxycodone 5 mg tablet 5 mg PO Q6H PRN (Reason: pain) Qty: 14 RF: 0 Continued fluticasone propionate [Flonase Allergy Relief] 50 mcg/actuation spray,suspension 2 spray intranasal DAILY Qty: 16 RF: 6 albuterol sulfate [Ventolin HFA] 90 mcg/actuation HFA aerosol inhaler 2 puff IH Q4H PRN (Reason: shortness of breath or wheezing) Qty: 8.5 RF: 11 omeprazole 20 mg capsule,delayed release(DR/EC) 20 mg PO DAILY RF: 0 methocarbamol 500 mg tablet 500 mg PO QID Qty: 60 RF: 2 mupirocin 2 % ointment 1 applic topical BID Qty: 15 RF: 0 Claritin-D 12 Hour 5-120 mg tablet extended release 12 hr 1 tab PO Q12H RF: 0 Discharge Instructions Additional Instructions: Activity at Home after surgery: 1. Make sure you walk outside at least 4 times per day 2. You should be able to climb a flight of stairs 3. No driving while in pain or taking pain medications 4. No strenuous activity or heavy lifting for 4 weeks (open surgery) Diet, Nutrition, & wound healin. Avoid alcohol until after you are recovered from your surgery 2. Make sure to eat plenty of lean protein (meat, fish, eggs, cottage cheese, beans) 3. Eat a variety of fruits and vegetables. Eat plenty of high fiber foods to avoid constipation. 4. Drink plenty of liquids to stay hydrated and avoid constipation Pain Medications: 1. Tylenol 650mg every 6 hours as needed and Ibuprofen 600 mg every 6 hours as needed. You may alternate between the 2 medications every 3 hours 2. If a narcotic has been prescribed take as directed only for breakthrough pain For Constipation: 1. Take Milk of Magnesia or MiraLax as needed for constipation Other: 1. You may shower daily. Do not scrub the incisions 2. Do not soak the incisions for 1 week 3. You may alternate ice and heat as needed for pain and swelling Wound Care: 1. Keep the incisions clean and dry Please call our office if you develop: 1. Fevers >101.5 2. Nausea or Vomiting 3. Worsening pain 4. Redness and thick discharge from the wounds If after hours please call the Hospital at and ask to speak to the on-call surgeon Referrals: Violet Reid MD [ [id number] STAFF PHYSICIAN] - 12/07/20 10:30 am Activity:: see above Remove Dressings/Wound Care:: Do Not Remove Shower/Bathe:: 24 hours Diet:: As Tolerated Discharge Orders Discharge Orders: Discharge Order (Routine); Ordered 11/24/20 Ordered By: Violet Reid
[2020-11-24 08:23] VITALS: BP 131/77; PULSE 79; RESP 16; TEMP 36.6; O2SAT 97
[2020-11-24] MEDS: Acetaminophen 500 MG TAB 1000 MG PO (08:29)
[2020-11-24] MEDS: Celecoxib 200 MG CAP PO (08:30)
[2020-11-24] MEDS: Lactated Ringers 1,000 ML 80 ML IV (08:30)
--- NOTE | 2020-11-24 08:43 | W.ANESPRE ---
General Info Date of Service Date Performed: 11/24/20 Height: 5 ft 9 in Weight: 103.3 kg Body Mass Index (BMI): 33.6 Surgical Procedure: Operation Date: 11/24/20 09:10 Proposed Procedures Side Surgeon p Herniorrhaphy Umbilical repair with mesh Violet Reid MD Meds Allergies and Home Medications Allergies Allergy/AdvReac Type Severity Reaction Status Date / Time ciprofloxacin Allergy Intermediate Verified 11/24/20 08:18 clindamycin Allergy Intermediate Verified 11/24/20 08:18 mold Allergy Mild Verified 11/24/20 08:18 pollen extracts Allergy Mild Verified 11/24/20 08:18 dander Allergy Uncoded 11/24/20 08:18 dust Allergy Uncoded 11/24/20 08:18 Home Medication Medication Instructions Recorded loratadine 5 mg-pseudoephedrine ER 1 tab PO Q12H 01/22/20 120 mg tablet,extended release,12hr albuterol sulfate 90 mcg/actuation 2 puff IH Q4H PRN #8.5 gm 09/10/20 aerosol inhaler fluticasone propionate 50 2 spray INTRANASAL DAILY #16 g 09/10/20 mcg/actuation nasal spray,suspension omeprazole 20 mg capsule,delayed 20 mg PO DAILY 09/10/20 release methocarbamol 500 mg tablet 500 mg PO QID #60 tab 10/15/20 mupirocin 2 % topical ointment 1 applic TOPICAL BID #15 g 11/01/20 Current Visit Medications: Current Medications Generic Name Dose Route Start Last Admin Trade Name Freq PRN Reason Stop Dose Admin Acetaminophen 1,000 mg 11/24/20 06:00 11/24/20 08:29 Acetaminophen 500 Mg Tab PO 12/23/20 23:59 1,000 mg PREOP BRONWYN Administration Celecoxib 200 mg 11/24/20 06:00 11/24/20 08:30 Celecoxib 200 Mg Cap PO 12/23/20 23:59 200 mg PREOP BRONWYN Administration Ringer's Solution 1,000 mls @ 80 mls/hr 11/24/20 06:00 11/24/20 08:30 IV 12/23/20 23:59 80 mls/hr INFUSION BRONWYN Administration Cefazolin Sodium 2,000 mg/ 100 mls @ 200 mls/hr 11/24/20 06:00 Sodium Chloride IVPB 09/01/21 23:59 PREOP BRONWYN Ondansetron HCl 4 mg/ Sodium 52 mls @ 200 mls/hr 11/24/20 06:43 Chloride IVPB Q6H PRN PRN IV Miscellaneous Supplies 1 each 11/24/20 06:00 Iv Access IV 12/23/20 23:59 DIRECTED BRONWYN Oxycodone HCl 5 mg 11/24/20 06:43 Oxycodone 5 Mg Tab PO Q3H PRN PRN Pain Sodium Chloride 0 ml 11/24/20 06:00 Normal Saline Flush 10 Ml Syr IV 12/23/20 23:59 PRN PRN Sodium Chloride 0 ml 11/24/20 06:00 Normal Saline 10 Ml Vial IJ 12/23/20 23:59 DIRECTED PRN Sterile Water 0 ml 11/24/20 06:00 Water,Injection,Sterile 10 Ml Vial IJ 12/23/20 23:59 DIRECTED PRN PFSH Active Problems Active Problems: Problem Status Onset Code Umbilical hernia K42.9 Shoulder pain, right M25.511 Rib pain on left side R07.81 Chronic rhinitis J31.0 Deviated nasal septum J34.2 Mild intermittent asthma J45.20 Allergic rhinitis J30.9 Medical History Medical History Acquired hallux valgus Allergic rhinitis Anal pruritus Asthma Chronic fatigue syndrome Chronic insomnia RICHAR (generalized anxiety disorder) Irritable bowel syndrome with diarrhea Mild intermittent asthma Neuropathy FROILAN (obstructive sleep apnea) RLS (restless legs syndrome) Surgical History Surgical History History of colonoscopy History of esophagogastroduodenoscopy (EGD) Hx of surgical procedure axillary infection removed. No significant past surgical history Tobacco Smoking/Tobacco Use Status: Current-Occasional Tobacco Type: cigarettes, pipe and cigars Tobacco: How many years used: 14 Passive smoking exposure: Yes Quit Status: has quit before Second hand exposure: Yes Alcohol Alcohol Intake: current Alcohol intake frequency: a few times a week Substance Use Substance use: Never Substance use type: does not use Vital Signs and Lab Results Vital Signs Most Recent Vital Signs in EMR: Most Recent Vital Signs Temp Pulse Resp BP Pulse Ox 36.6 C 79 16 131/77 97 11/24/20 08:23 11/24/20 08:23 11/24/20 08:23 11/24/20 08:23 11/24/20 08:23 Lab Results Blood Type / Crossmatch: No Data to Display Complete Blood Count: No Data to Display Complete Metabolic Panel: No Data to Display Liver Function Panel: No Data to Display Coagulation Panel: No Data to Display Cardiac Panel: No Data to Display Arterial Blood Gas: No Data to Display Venous Blood Gas: No Data to Display Pancreas Panel: No Data to Display Thyroid Panel: No Data to Display Infectious Disease: Coronavirus (COVID-19)(PCR) Negative (Negative) 11/22/20 11:22 11/22/20 Coronavirus 2019 Source Nasal/Nares 11/22/20 11:22 11/22/20 Blood Cultures: No Data to Display Toxicology Panel: No Data to Display Imaging and Studies Imaging and Studies EKG Summary: Conclusion Sinus rhythm...normal P axis, V-rate 60- [address] elevation, anterior leads...ST >0.15mV in V1-V4 12/19/19 Anesthesia Assessment and Plan Anesthesia History Personal History: No History of Anesthesia Complications Family History: No Family History of Anesthesia Complications Exercise Tolerance Exercise Tolerance: Metabolic Equivalents>4 Pertinent Negatives Pertinent Negatives: No Symptoms of GERD, No Major Cardiovascular Symptoms or Complaints and No Major Pulmonary Symptoms or Complaints Cardiac & Pulmonary Exam Cardiac Exam: Normal S1/S2 Heart Sounds Pulmonary Exam: Clear Bilateral Breath Sounds Airway Exam Known Difficult Airway: No Mallampati Class: 2 Mouth Opening: Normal (> 3cm) Thyromental Distance: Greater than 3 cm Facial Hair: Full [place] Neck Range of Motion: Full ROM Neck Circumference: Normal Teeth Condition: Normal Dentition ASA Classification ASA Score: ASA 2 Emergency Case?: No NPO Status NPO Status: NPO Clears >2 hours, Solids >8 hours Anesthesia Plan Resuscitation Status: Full Code Anesthesia Technique: General Anesthesia Airway Planned: Natural Airway Monitors Used: Standard Monitors
[2020-11-24 08:48] VITALS: BMI 33.6
[2020-11-24] MEDS: ceFAZolin 2,000 MG in Normal Saline 100 ML 200 MG IVPB (09:24)
[2020-11-24] MEDS: Bupivacaine LIPOSOME/PF 133 MG/10 ML VIAL IJ (09:38)
[2020-11-24] MEDS: Bupivacaine 0.25% Pres-Free 30 ML VIAL (09:39)
[2020-11-24 10:18] VITALS: BP 121/73; PULSE 90; RESP 16; TEMP 36.3; O2SAT 98
--- NOTE | 2020-11-24 10:26 | W.ANESPOSTOP ---
Postoperative Evaluation Date, Time and Location Date Performed: 11/24/20 Time Performed: 10:27 Patient Location: Day Surgery Unit Vital Signs Most Recent Imported Vital Signs: Most Recent Vital Signs Temp Pulse Resp BP Pulse Ox 36.3 C L 90 16 121/73 98 11/24/20 10:18 11/24/20 10:18 11/24/20 10:18 11/24/20 10:18 11/24/20 10:18 Pain Score Most Recent Pain Score: Most Recent Pain Score Pain Level 0 11/24/20 10:18 Assessment Mental Status: Awake (Alert & Oriented to Patient Baseline) Airway and Respiratory Function: Patent airway with normal (patient baseline) respiratory exam Cardiovascular Function: Hemodynamically Stable Hydration Status: Adequately Hydrated Nausea & Vomiting: No Nausea or Vomiting Pain: Pt. Denies Any Pain Peripheral Nerve Block: Patient did not receive a nerve block
[2020-11-24 10:49] VITALS: BP 122/85; PULSE 72; RESP 16; TEMP 36.5; O2SAT 97
== END 2020-11-24 11:20 | disposition home or self-care (01) ==
LOC: SUR 08:05
PROVIDERS: PCP Nurse Practitioner; Visit Provider Surgery
PROC: (CPT 49585; principal; 2020-11-24 09:00)
DX: K42.9 Umbilical hernia without obstruction or gangrene (principal); G47.33 Obstructive sleep apnea (adult) (pediatric); J45.909 Unspecified asthma, uncomplicated
CPT/HCPCS: 49585; J0690; J1885; J2001; J2405

== ENCOUNTER 2021-02-23 02:22 | Outpatient (CLI) | payer BC, SELFPAY ==
[2021-02-23 14:16] LABS: Source Nasal/Nares
[2021-02-23 21:48] LABS: COVID-19 PCR Negative (Negative)
== END 2021-02-23 02:23 | disposition home or self-care (01) ==
LOC: LBO 02:22
PROVIDERS: PCP Nurse Practitioner; Visit Provider Otolaryngology Otolaryngology/Facial Plastic Surgery
DX: Z20.822 Contact with and (suspected) exposure to COVID-19 (principal)
CPT/HCPCS: 87635

== ENCOUNTER 2021-02-25 06:18 | Day surgery (SDC) | payer BC, SELFPAY ==
[2021-02-25] VITALS (9 sets, daily range): BP systolic 117–146; BP diastolic 86–105; PULSE 70–90; RESP 12–18; TEMP 36.3–36.8; O2SAT 94–98; BMI 36.8
[2021-02-25] MEDS: Lactated Ringers 1,000 ML 80 ML IV (06:51)
--- NOTE | 2021-02-25 07:09 | W.ANESPRE ---
General Info Date of Service Date Performed: 02/25/21 Height: 5 ft 8 in Weight: 109.7 kg Body Mass Index (BMI): 36.8 Surgical Procedure: Operation Date: 02/25/21 07:40 Proposed Procedures Side Surgeon p Septoplasty/ Inferior Turbinoplasty Yash Wagner, DO Actual Procedures Side Surgeon p Septoplasty/ Inferior Turbinoplasty Yash Wagner, DO Meds Allergies and Home Medications Allergies Allergy/AdvReac Type Severity Reaction Status Date / Time ciprofloxacin Allergy Intermediate Verified 02/25/21 06:37 clindamycin Allergy Intermediate Verified 02/25/21 06:37 mold Allergy Mild Verified 02/25/21 06:37 pollen extracts Allergy Mild Verified 02/25/21 06:37 mupirocin Allergy Unknown UNKNOWN Unverified 02/25/21 06:37 CT SCAN DYE Allergy Unknown Uncoded 02/25/21 06:37 dander Allergy Uncoded 02/25/21 06:37 dust Allergy Uncoded 02/25/21 06:37 Home Medication Medication Instructions Recorded albuterol sulfate 90 mcg/actuation 2 puff IH Q4H PRN #8.5 gm 09/10/20 aerosol inhaler fluticasone propionate 50 2 spray INTRANASAL DAILY #16 g 09/10/20 mcg/actuation nasal spray,suspension methocarbamol 500 mg tablet 500 mg PO QID #60 tab 10/15/20 mupirocin 2 % topical ointment 1 applic TOPICAL BID #15 g 11/01/20 omeprazole 20 mg capsule,delayed 20 mg PO DAILY #90 cap 02/07/21 release Current Visit Medications: Current Medications Generic Name Dose Route Start Last Admin Trade Name Asaelq PRN Reason Stop Dose Admin Ringer's Solution 1,000 mls @ 80 mls/hr 02/25/21 06:00 02/25/21 06:51 IV 03/26/21 23:59 80 mls/hr INFUSION BRONWYN Administration IV Miscellaneous Supplies 1 each 02/25/21 06:00 Iv Access IV 03/26/21 23:59 DIRECTED BRONWYN Sodium Chloride 0 ml 02/25/21 06:00 Normal Saline Flush 10 Ml Syr IV 03/26/21 23:59 PRN PRN Sodium Chloride 0 ml 02/25/21 06:00 Normal Saline 10 Ml Vial IJ 03/26/21 23:59 DIRECTED PRN Sterile Water 0 ml 02/25/21 06:00 Water,Injection,Sterile 10 Ml Vial IJ 03/26/21 23:59 DIRECTED PRN PFSH Active Problems Active Problems: Problem Status Onset Code Allergic rhinitis J30.9 Mild intermittent asthma J45.20 Deviated nasal septum J34.2 Chronic rhinitis J31.0 Rib pain on left side R07.81 Shoulder pain, right M25.511 Umbilical hernia K42.9 Medical History Active Problem List Allergic rhinitis (Acute) Mild intermittent asthma (Acute) Deviated nasal septum (Acute) Chronic rhinitis (Acute) Rib pain on left side (Acute) Shoulder pain, right (Acute) Umbilical hernia (Acute) Medical History Acquired hallux valgus Anal pruritus Asthma Chronic fatigue syndrome pt. deniesthis Chronic insomnia pt. denies this RICHAR (generalized anxiety disorder) Irritable bowel syndrome with diarrhea pt. denies this Neuropathy pt. denies this FROILAN (obstructive sleep apnea) RLS (restless legs syndrome) pt . denies this Surgical History Surgical History History of colonoscopy History of esophagogastroduodenoscopy (EGD) Hx of surgical procedure axillary infection removed. No significant past surgical history Tobacco Smoking/Tobacco Use Status: Current-Occasional Tobacco Type: cigarettes, pipe and cigars Tobacco: How many years used: 14 Passive smoking exposure: Yes Quit Status: has quit before Second hand exposure: Yes Alcohol Alcohol Intake: current Alcohol intake frequency: a few times a month Alcohol type: beer, wine and hard liquor Substance Use Substance use: Never Substance use type: does not use Vital Signs and Lab Results Vital Signs Most Recent Vital Signs in EMR: Most Recent Vital Signs Temp Pulse Resp BP Pulse Ox 36.7 C 90 18 132/92 H 96 02/25/21 06:25 02/25/21 06:25 02/25/21 06:25 02/25/21 06:25 02/25/21 06:25 Lab Results Blood Type / Crossmatch: No Data to Display Complete Blood Count: No Data to Display Complete Metabolic Panel: No Data to Display Liver Function Panel: No Data to Display Coagulation Panel: No Data to Display Cardiac Panel: No Data to Display Arterial Blood Gas: No Data to Display Venous Blood Gas: No Data to Display Pancreas Panel: No Data to Display Thyroid Panel: No Data to Display Infectious Disease: Coronavirus (COVID-19)(PCR) Negative (Negative) 02/23/21 11:25 02/23/21 Coronavirus 2019 Source Nasal/Nares 02/23/21 11:25 02/23/21 Blood Cultures: No Data to Display Toxicology Panel: No Data to Display Imaging and Studies Imaging and Studies EKG Summary: Conclusion Sinus rhythm...normal P axis, V-rate 60- [address] elevation, anterior leads...ST >0.15mV in V1-V4 12/19/19 Anesthesia Assessment and Plan Anesthesia History Personal History: No History of Anesthesia Complications Family History: No Family History of Anesthesia Complications Exercise Tolerance Exercise Tolerance: Metabolic Equivalents>4 Pertinent Negatives Pertinent Negatives: No Major Cardiovascular Symptoms or Complaints Cardiac & Pulmonary Exam Cardiac Exam: Normal S1/S2 Heart Sounds Pulmonary Exam: Clear Bilateral Breath Sounds Cardiac and Pulmonary Comment:: Patient reported some chest tightness associated with asthma, administered duoneb in DSU, symptoms resolved. Implantable Cardiac Device Does patient have a Pacemaker or an ICD?: No Airway Exam Known Difficult Airway: No Mallampati Class: 2 Mouth Opening: Normal (> 3cm) Thyromental Distance: Greater than 3 cm Neck Range of Motion: Full ROM Neck Circumference: Normal Teeth Condition: Normal Dentition ASA Classification ASA Score: ASA 2 Emergency Case?: No NPO Status NPO Status: NPO Clears >2 hours, Solids >8 hours Anesthesia Plan Resuscitation Status: Full Code Anesthesia Technique: General Anesthesia Airway Planned: Endotracheal Tube Monitors Used: Standard Monitors
--- NOTE | 2021-02-25 07:36 | W.PM.DSUDISC ---
Discharge Plan Disposition Patient Disposition: HOME Condition: Good Discharge Details Reason For Visit: OR Attending Provider: Yash Wagner Primary Care Provider: Kassy Bray Home Meds and New Rx's Prescriptions: No Action fluticasone propionate [Flonase Allergy Relief] 50 mcg/actuation spray,suspension 2 spray intranasal DAILY Qty: 16 RF: 6 albuterol sulfate [Ventolin HFA] 90 mcg/actuation HFA aerosol inhaler 2 puff IH Q4H PRN (Reason: shortness of breath or wheezing) Qty: 8.5 RF: 11 methocarbamol 500 mg tablet 500 mg PO QID Qty: 60 RF: 2 mupirocin 2 % ointment 1 applic topical BID Qty: 15 RF: 0 omeprazole 20 mg capsule,delayed release(DR/EC) 20 mg PO DAILY Qty: 90 RF: 4 Discharge Instructions Additional Instructions: see sheet Equipment/Supplies: Brace Activity:: Activity as Tolerated Remove Dressings/Wound Care:: 24 hours Shower/Bathe:: 24 hours Diet:: As Tolerated DS: Diagnosis Discharge Diagnosis (1) Deviated nasal septum: Status: Acute (2) Mild intermittent asthma: Status: Acute (3) Hypertrophy of inferior nasal turbinate: Status: Acute
--- NOTE | 2021-02-25 07:38 | ROE_ITS ---
Operative Note Operative Note DATE OF PROCEDURE: 02/25/21 PRE-OP DIAGNOSIS: Chronic usual obstruction, nasal posterior deviation, inferior turbinate hypertrophy, asthma PROCEDURE: Nasal septal reconstruction, bilateral inferior turbinate submucosal reduction SURGEON: Yash Wagner ANESTHESIA TYPE: General LMA/ETT Refer to Anesthesia Record ESTIMATED BLOOD LOSS: 5 COMPLICATIONS: None Patient was transported to: PACU Patient's condition: stable Indications: Chronic nasal obstruction, failed max medical therapy, Procedure Description: Patient was brought to the operating suite in stable condition supine operative table and intubated in normal fashion. Table was admitted degrees. Timeout was taken to confirm preparation procedure. [place]'s type incision was made on the side of the septum mucosa, subperichondrial flap was performed. Crossing incisions with septal knife was performed similar offset contralateral subperichondrial flap elevated. The obstructive cartilage was removed, however there was a prominent bony left-sided spur, a 4 mm osteotome was used to remove this without complication. Midline septal anatomy achieved. Subperichondrial flaps were reapproximated with 4-0 plain suture. Next 15 blade scalpel was used to incise anterior face inferior turbinates bilaterally. Obstructive bone and soft tissue were conducted with a 2.0 mm XPS blade under direct visualization. Adequate reduction was achieved bilaterally. Stab incisions were closed with 4-0 Chromic Gut suture. Adames splints were placed with Bactroban, sutured to the columella with 2-0 silk suture, patient had normal blood loss and was stable to PACU.
[2021-02-25] MEDS: Oxymetazolone 0.05% SPRAY 15 ML BTL (08:28)
--- NOTE | 2021-02-25 08:47 | W.PM.OP ---
Operative Note Operative Note DATE OF PROCEDURE: 02/25/21 PROCEDURE: Nasal septal reconstruction, bilateral inferior turbinate submucosal reduction Refer to Anesthesia Record ESTIMATED BLOOD LOSS: 5 Patient was transported to: PACU Patient's condition: stable Implants: Nasal septal reconstruction, bilateral inferior turbinate submucosal reduction Procedure Description:
--- NOTE | 2021-02-25 10:09 | W.ANESPOSTOP ---
Postoperative Evaluation Date, Time and Location Date Performed: 02/25/21 Time Performed: 10:09 Patient Location: Day Surgery Unit Vital Signs Most Recent Imported Vital Signs: Most Recent Vital Signs Temp Pulse Resp BP Pulse Ox 36.3 C L 81 12 142/103 H 94 02/25/21 09:44 02/25/21 09:44 02/25/21 09:44 02/25/21 09:44 02/25/21 09:44 Pain Score Most Recent Pain Score: Most Recent Pain Score Pain Level 3 02/25/21 09:44 Assessment Mental Status: Awake (Alert & Oriented to Patient Baseline) Airway and Respiratory Function: Patent airway with normal (patient baseline) respiratory exam Cardiovascular Function: Hemodynamically Stable (Discussed follow up on hypertension with primary care) Hydration Status: Adequately Hydrated Nausea & Vomiting: No Nausea or Vomiting Pain: Pt. Denies Any Pain Peripheral Nerve Block: Patient did not receive a nerve block
== END 2021-02-25 11:28 | disposition home or self-care (01) ==
PROVIDERS: PCP Nurse Practitioner; Visit Provider Otolaryngology Otolaryngology/Facial Plastic Surgery
PROC: (CPT 30520; principal; 2021-02-25 07:30)
DX: J34.2 Deviated nasal septum (principal); J45.30 Mild persistent asthma, uncomplicated; J34.3 Hypertrophy of nasal turbinates
CPT/HCPCS: 30520; 30140; J0690; J1100; J2001; J2250; J2405; J2704; J3010; J3475

== ENCOUNTER 2021-04-21 03:47 | Outpatient (CLI) | payer BC, SELFPAY ==
[2021-04-21] MEDS: Albuterol HFA 18 GM 200 PUFF INH IH (16:38)
[2021-04-21] MEDS: Inhaler, Assist Device 1 EACH MC (16:39)
--- NOTE | 2021-04-22 16:14 | W.PFT ---
Date of service: 04/21/21 Time of Service: 15:15 Pulmonary Function Test Result Requesting Provider Kassy Bray Indications: Dyspnea Interpretation Spirometry: There is no airflow limitation. There is no significant bronchodilator response. Lung Volumes: Lung volumes are normal Diffusion Capacity: Diffusion is normal Airway Pressure: Airways resistance is normal. Impression Normal pulmonary function test Clinical Correlation therefore is recommended.
== END 2021-04-21 03:48 | disposition home or self-care (01) ==
LOC: RT 03:47
PROVIDERS: PCP Nurse Practitioner; Visit Provider Nurse Practitioner
DX: R06.09 Other forms of dyspnea (principal); J45.20 Mild intermittent asthma, uncomplicated; Z87.891 Personal history of nicotine dependence
CPT/HCPCS: 94060; 94726; 94729

== ENCOUNTER 2022-05-29 02:06 | Outpatient (CLI) | payer BC, SELFPAY ==
--- NOTE | 2022-05-29 07:30 | DI.US_ITS ---
Exam(s) US BREAST RT LIMITED MG MAMMO DIAGNOSTIC BI EXAM: MG MAMMO DIAGNOSTIC BI CLINICAL HISTORY: rt breast lump,n63.0. COMPARISON: No exams were available for comparison TECHNIQUE: Craniocaudal and mediolateral oblique Full Field Digital Mammography views of the both br easts with Computer Aided Diagnosis followed by Tomosynthesis and right breast ultrasound. FINDINGS: Mammography/Tomosynthesis: Masses/Architectural Distortion: None seen. No evidence of gynecomastia. Microcalcifications: No suspicious pleomorphic-type are seen. Skin Thickening/Nipple Retraction: None. Right breast US: Echotexture: Normal appearance of the glandular tissue. Shadowing: No suspicious foci. Cyst: None. Solid lesions: None seen. Ductal dilation: None. IMPRESSION: 1. No evidence of malignancy is noted. 2. Unless there is more urgent need, follow-up screening mammography is recommended, as per [place] [employer] guidelines. BI-RADS Category 1 - Negative Breast Density - Category A - Almost entirely fatty A negative radiographic report should not delay biopsy if a dominant or clinically suspicious mass is present. Up to ten percent of cancers are not identified on mammography. A negative report may reinforce clinical impression. Adenosis and dense breasts may obscure an underlying neoplasm. False positive reports average 6 to 10%. Patient will receive a letter notifying them of these results.
== END 2022-05-29 02:26 ==
LOC: DI 02:07
PROVIDERS: PCP Nurse Practitioner Family; Visit Provider Nurse Practitioner Family
DX: N63.10 Unspecified lump in the right breast, unspecified quadrant (principal)
CPT/HCPCS: 76642; 77062; 77066; G0279

== ENCOUNTER 2024-10-06 03:13 | Outpatient (CLI) | payer BC, SELFPAY ==
[2024-10-06 13:02] LABS: Hemoglobin A1C 5.2 % (<5.7)
[2024-10-06 13:31] LABS: ALT 40 U/L (16-63); AST 21 U/L (15-37); Albumin 4.1 g/dL (3.4-5.0); Alkaline Phosphatase 80 U/L (46-116); Anion Gap 5.5 mmol/L (3-11); BUN 15 mg/dL (7-18); Bilirubin, Total 0.6 mg/dL (0.2-1.0); CO2 28.5 mmol/L (21.0-32.0); Calcium 9.5 mg/dL (8.5-10.1); Calculated LDL 138 mg/dL (<100); Chloride 104 mmol/L (98-107); Cholesterol 204 mg/dL (<200); Estimated GFR 100.03 (mL/min/1.73m2); Glucose 101 mg/dL (74-106); HDL Cholesterol 40 mg/dL (>or=40); Potassium 4.2 mmol/L (3.5-5.1); Sodium 138 mmol/L (136-145); TSH (W/Ref FT4) 1.93 uIU/mL (0.36-3.74); Total Protein 7.2 g/dL (6.4-8.2); Triglyceride 132 mg/dL (<150)
== END 2024-10-06 03:14 | disposition home or self-care (01) ==
LOC: LOS 03:13
PROVIDERS: PCP Nurse Practitioner Family; Visit Provider Nurse Practitioner Family
DX: Z00.00 Encounter for general adult medical examination without abnormal findings (principal); R73.01 Impaired fasting glucose; Z13.29 Encounter for screening for other suspected endocrine disorder; J45.20 Mild intermittent asthma, uncomplicated
CPT/HCPCS: 36415; 80053; 80061; 83036; 84443